=== PATIENT | female | born 1975 | race Caucasian/White ===

== ENCOUNTER 2020-10-15 14:08 | Outpatient (CLI) | payer BC ==
[~2020-10-15 14:08] MED LIST: FRS325T PO; IBP600T1 PO
== END 2020-10-15 14:24 | disposition home or self-care (01) ==
LOC: SLEEP 14:08
PROVIDERS: ATTEND Otolaryngology Otolaryngology/Facial Plastic Surgery
DX: G47.33 Obstructive sleep apnea (adult) (pediatric) (principal)
CPT/HCPCS: G0399

== ENCOUNTER 2021-05-06 05:29 | Outpatient (RCR) | payer BC ==
[~2021-05-06] VITALS: Ht 165 cm; Wt 113.9 kg
[~2021-05-06 05:29] MED LIST changes: +LISI10TA25 PO
[2021-05-08] MEDS ORDERED: PANT40TA2 PO (10:41)
== END 2021-05-06 09:20 | disposition home or self-care (01) ==
LOC: PREOP 05:29
PROVIDERS: ATTEND Surgery
DX: Z01.818 Encounter for other preprocedural examination (principal); R13.10 Dysphagia, unspecified; Z20.822 Contact with and (suspected) exposure to COVID-19
CPT/HCPCS: 87635

== ENCOUNTER → 2021-05-08 | Day surgery (SDC) | payer BC ==
[2021-05-08] VITALS (15 sets, daily range): BP systolic 137–178; BP diastolic 66–94
[~2021-05-08] VITALS: Ht 165 cm; Wt 114.0 kg
[~2021-05-08] MED LIST changes: +HURRICAINE EXT TUBE (BENZOCAINE) XX PRN; +LACTATED RINGERS 1,000 ML IV ONE; +LACTATED RINGERS 1,000 ML IV STA; +LIDOCAINE JELLY 2% 6 ML SYRINGE MM PRN; +MIDAZOLAM 5 MG/5 ML (VERSED) VIAL IV ONE; +ONDANSETRON 4 MG (ZOFRAN) ORAL DISSOLVE TAB PO PRN; +ONDANSETRON 4 MG/2 ML (SDV) Z0FRAN IVP PRN; +PANT40TA2 PO; +fentaNYL INJ 100 MCG/2 ML AMP IVP ONE
--- NOTE | 2021-05-08 10:40 | Conscious Sedation/ASA ---
Conscious Sedation Pre-Proced Time 10:30 ASA Score 2 For ASA 3 and 4: Consider anesthesia and medical clearance. Also, for patients with a history of failed moderate sedation consider anesthesia. Airway Lungs Heart ASA score ASA 1: a normal healthy patient ASA 2: a patient with a mild systemic disease (mid diabetes, controlled hypertension, obesity ASA 3: a patient with a severe systemic disease that limits activity (angina, COPD, prior Myocardial infarction) ASA 4: a patient with an incapacitating disease that is a constant threat to life (CHF, renal failure) ASA 5: a moribund patient not expected to survive 24 hrs. (ruptured aneurysm) ASA 6: a declared brain- patient whose organs are being harvested. For emergent operations, add the letter E after the classification Mallampati Classification Grade 2 Sedation Plan Analgesia, Amnesia, Plan communicated to team members, Discussed options with patient/fam, Discussed risks with patient/fam The patient is an appropriate candidate to undergo the planned procedure, sedation, and anesthesia. The patient immediately re-assessed prior to indication. SABRINA BE MD May 08, 2021 10:40
--- NOTE | 2021-05-08 10:40 | Progress Note-Pre Operative ---
Pre-Operative Progress Note H&P Reviewed The H&P was reviewed, patient examined and no changes noted. Date Seen by Provider: May 08, 2021 Time Seen by Provider: 10:30 Date H&P Reviewed: May 08, 2021 Time H&P Reviewed: 10:30 Pre-Operative Diagnosis: dysphagia SABRINA BE MD May 08, 2021 10:40
--- NOTE | 2021-05-08 10:41 | Discharge Inst-Surgical ---
D/C Lap Instructions-KIDO New, Converted, or Re-Newed RX: RX on Chart Follow Up Activity as tolerated High Fiber Diet 25g or more per day Avoid Alcohol, Caffeine, Spicy [place] and Acid foods. Drink 64 fluid oz or more of fluids per day. Symptoms to Report: Fever over 101 degree F, Nausea/Vomiting If any problems/questions: Contact your physician or go to Emergency Room SABRINA BE MD May 08, 2021 10:41
--- NOTE | 2021-05-08 12:25 | Progress Note-Post Operative ---
Post-Operative Progess Note Surgeon (s)/Lathe Mechanic (s) Surgeon SABRINA BE MD Lathe Mechanic: none Pre-Operative Diagnosis dysphagia Post-Operative Diagnosis reflux esophagitis(stage2-3), mild dist esoph stricture, small HH(1cm), moderate gastritis. Procedure & Operative Findings Date of Procedure 05/08/21 Procedure Performed/Findings EGD with bx and balloon dilatation. Anesthesia Type cs Estimated Blood Loss Estimated blood loss (mL): minimal Specimens/Packing Specimens Removed ge jxn, antrum SABRINA BE MD May 08, 2021 12:25
--- NOTE | 2021-05-08 17:56 | OPERATIVE REPORT ---
DATE OF SERVICE: 05/08/2021 ATTENDING PRIMARY CARE PHYSICIAN: Petr Chung DO PREOPERATIVE DIAGNOSES: Dysphagia, gastroesophageal reflux disease. POSTOPERATIVE DIAGNOSES: Reflux esophagitis stage II, mild distal esophageal stricture, small hiatal hernia, 1 cm in size, moderate gastritis. PROCEDURE: EGD with biopsy and balloon dilatation. SURGEON: Sabrina Be MD ANESTHESIA: Conscious sedation. ESTIMATED BLOOD LOSS: Minimal. FINDINGS: Same as postoperative diagnoses. DISPOSITION: The patient tolerated the procedure well. INDICATIONS: The patient is a 45-year-old female who has had issues with gastroesophageal reflux disease; however, in the past few months, she has noticed dysphagia, especially with lean meats. After food bolus, she would feel a substernal pressure sensation, which would persist for several minutes and this will either reduce on its own; however, she would also have some episodes of regurgitation. She does not report any hematemesis, no coffee ground emesis. DESCRIPTION OF PROCEDURE: The patient was brought to the endoscopy suite, laid in left lateral decubitus position. After adequate IV pain and sedative medications and conscious sedation anesthesia, the mouthpiece was applied. The endoscope was placed in the mouth, visualizing the pharynx and hypopharyngeal region. Vocal cords, epiglottis and vallecula identified and appeared to be normal. The endoscope was then gently intubated into esophageal opening and esophagus insufflated. The endoscope was then advanced through the first, second and third portion of esophagus at the level of the GE junction, reflux esophagitis between stage II and III identified as well as a mild distal esophageal stricture. A biopsy was taken with forceps with visualization of good hemostasis. The endoscope was then advanced in the stomach and endoscope retroflexed, visualizing a small hiatal hernia approximately 1.1 to 1.5 cm in size. There was a moderate gastritis. No formal ulcerations, polyps, or any neoplasms. A biopsy was taken of the antrum to rule out H. pylori with visualization of good hemostasis. The endoscope was then advanced to the pylorus and the first and second portions of the duodenum, which appeared normal with no distal obstructions. The balloon was then placed in the stomach and pulled back to the area of stricture. We then proceeded in a gradual stepwise fashion from 2 to 4 atmospheres of pressure with moderate resistance and left this in place for 60 seconds. This equals approximately 19 mm in luminal diameter. The balloon was then desufflated and removed with visualization of good hemostasis as well as a small superficial mucosal tear, which was small and less than a few millimeters. The endoscope was then slowly withdrawn while taking a second look and suctioning of residual air with no additional findings. The patient tolerated the procedure well. We will recommend the necessary lifestyle and diet accommodation including small and more frequent meals, avoidance of eating at night as well as head elevation while lying supine. She also needs to avoid caffeinated beverages, spicy, greasy and acidic foods. We will also start her on Protonix 40 mg daily. If she does have recurrent dysphagia, we will have her follow up for repeat dilatation. Job ID: [id number] DocumentID: [id number] Dictated Date: 05/08/2021 12:21:58 Box Brander Date: 05/08/2021 17:56:16 Dictated By: SABRINA BE MD
== END ==
LOC: ENDO 09:50
PROVIDERS: ATTEND Surgery
DX: K21.00 Gastro-esophageal reflux disease with esophagitis, without bleeding (principal); K22.2 Esophageal obstruction; K31.89 Other diseases of stomach and duodenum; K44.9 Diaphragmatic hernia without obstruction or gangrene; K29.70 Gastritis, unspecified, without bleeding; I10 Essential (primary) hypertension; Z80.0 Family history of malignant neoplasm of digestive organs; Z79.899 Other long term (current) drug therapy

== ENCOUNTER → 2021-12-20 | Outpatient (CLI) | payer BC, OTHER ==
[~2021-12-20] MED LIST changes: -HURRICAINE EXT TUBE (BENZOCAINE) XX PRN; -LACTATED RINGERS 1,000 ML IV ONE; -LACTATED RINGERS 1,000 ML IV STA; -LIDOCAINE JELLY 2% 6 ML SYRINGE MM PRN; -MIDAZOLAM 5 MG/5 ML (VERSED) VIAL IV ONE; -ONDANSETRON 4 MG (ZOFRAN) ORAL DISSOLVE TAB PO PRN; -ONDANSETRON 4 MG/2 ML (SDV) Z0FRAN IVP PRN; -fentaNYL INJ 100 MCG/2 ML AMP IVP ONE
--- NOTE | 2021-12-20 11:32 | Diagnostic Imaging Report ---
INDICATION: Post recent fall downstairs 2 weeks ago with continued severe back pain. Hypotension. TECHNIQUE: AP, Lateral and Spot imaging of the lumbar spine CORRELATION STUDY: None FINDINGS: Grade 2 spondylolisthesis of L5 on S1 appears attributed to pars articularis defect. Likely nonacute. Lumbar spinal alignment otherwise anatomic. Lumbar vertebral body heights are maintained. There is moderate to marked disc space narrowing at L5-S1 level with the remaining disc spaces overall fairly well preserved. SI joints unremarkable. IMPRESSION: Grade 2 spondylolisthesis of L5 on S1 attributed to likely nonacute pars articularis defect. Associated degenerative disc disease. Dictated by: Dictated on workstation # [id number]
--- NOTE | 2021-12-20 11:33 | Diagnostic Imaging Report ---
INDICATION: Fall with pelvic injury and pain. FINDINGS: AP and lateral views of the pelvis are obtained. Evaluation of the sacrum is somewhat limited due to superimposed rectal stool on the AP image. No definite acute fracture is identified. There is grade 1 anterolisthesis of L5 on S1 with associated marginal spurring. IMPRESSION: No definite acute pelvic abnormality is identified. There is grade 1 anterolisthesis of L5 on S1, which may be chronic, although correlation with site of pain would be useful. Dictated by: Dictated on workstation # [id number]
== END ==
LOC: RAD 10:42
PROVIDERS: ATTEND Chiropractor
DX: M43.17 Spondylolisthesis, lumbosacral region (principal)
CPT/HCPCS: 72100; 72170